=== PATIENT | female | born 1970 | race Caucasian/White ===

== ENCOUNTER → 2017-05-05 | Outpatient (REF) | payer MEDICARE, OTHER ==
[~2017-05-05] MED LIST: HYDROCHLOROTHIAZIDE PO; METROPROLOL PO; PANTOPRAZOLE PO; VITAMIN D PO
[2017-05-05 16:24] LABS: BASO % 0.5 % (0.0-1.0); EOS # 0.1 K/mm3 (0.0-0.50); LARGE UNSTAINED CELL # 0.1 K/mm3 (0.0-0.4); LARGE UNSTAINED CELL % 1.1 % (0.0-4.0); LYMPH # 2.5 K/mm3 (1.5-4.5); LYMPH % 23.4 % (24.0-44.0); MEAN CORPUSCULAR HEMOGLOBIN 31.4 pg (27.0-33.0); MEAN CORPUSCULAR HGB CONC 33.8 g/dl (32.0-36.5); MONO # 0.3 K/mm3 (0.0-0.8); MONO % 3.3 % (0.0-5.0); NEUTROPHILS # 7.2 K/mm3 (1.8-7.7); NEUTROPHILS % 70.7 % (36.0-66.0); PLATELET COUNT, AUTOMATED 219 k/mm3 (150-450); RED CELL DISTRIBUTION WIDTH 13.6 % (11.5-14.5); WHITE BLOOD COUNT 10.2 K/mm3 (4.0-10.0)
[2017-05-05 16:37] LABS: ALBUMIN 3.6 GM/DL (3.2-5.2); ALBUMIN/GLOBULIN RATIO 1.09 (1.00-1.93); ALKALINE PHOSPHATASE 100 U/L (45-117); ALT/SGPT 31 U/L (12-78); ANION GAP 7 MEQ/L (8-16); AST/SGOT 24 U/L (15-37); BILIRUBIN,TOTAL 0.3 MG/DL (0.2-1.0); BLOOD UREA NITROGEN 6 MG/DL (7-18); CALCIUM LEVEL 9.1 MG/DL (8.5-10.1); CARBON DIOXIDE LEVEL 30 MEQ/L (21-32); CHLORIDE LEVEL 100 MEQ/L (98-107); CHOLESTEROL LEVEL 202 MG/DL (<200); GLOMERULAR FILTRATION RATE > 60.0 (>58); GLUCOSE, FASTING 98 MG/DL (70-105); POTASSIUM SERUM 3.6 MEQ/L (3.5-5.1); SODIUM LEVEL 137 MEQ/L (136-145); TOTAL PROTEIN 6.9 GM/DL (6.4-8.2); TRIGLYCERIDES LEVEL 90 MG/DL (<150)
== END ==
LOC: M LABDRAW1 16:06
PROVIDERS: ATTEND Nurse Practitioner Family
DX: K21.9 Gastro-esophageal reflux disease without esophagitis (principal); Z13.220 Encounter for screening for lipoid disorders; I10 Essential (primary) hypertension

== ENCOUNTER → 2018-02-07 | Outpatient (REF) | payer MEDICARE, OTHER ==
[2018-02-07 16:00] LABS: BASO # 0.1 10^3/uL (0.0-0.2); BASO % 0.6 % (0.0-1.0); EOS # 0.1 10^3/uL (0.0-0.50); EOS % 1.5 % (0.0-3.0); HEMATOCRIT 38.5 % (36.0-47.0); HEMOGLOBIN 12.9 g/dl (12.0-15.5); IMMATURE GRANULOCYTE % 0.2 % (0-3.0); LYMPH # 2.4 10^3/uL (1.5-4.5); LYMPH % 27.1 % (24.0-44.0); MEAN CORPUSCULAR HEMOGLOBIN 30.5 pg (27.0-33.0); MEAN CORPUSCULAR HGB CONC 33.5 g/dl (32.0-36.5); MONO # 0.5 10^3/uL (0.0-0.8); MONO % 5.5 % (0.0-5.0); NEUTROPHILS # 5.7 10^3/uL (1.8-7.7); NEUTROPHILS % 65.1 % (36.0-66.0); PLATELET COUNT, AUTOMATED 215 10^3/uL (150-450); RED BLOOD COUNT 4.23 10^6/uL (4.00-5.40); RED CELL DISTRIBUTION WIDTH 13.9 % (11.5-14.5); WHITE BLOOD COUNT 8.7 10^3/uL (4.0-10.0)
[2018-02-07 16:15] LABS: ALBUMIN 3.8 GM/DL (3.2-5.2); ALBUMIN/GLOBULIN RATIO 1.19 (1.00-1.93); ALKALINE PHOSPHATASE 109 U/L (45-117); ALT/SGPT 27 U/L (12-78); ANION GAP 8 MEQ/L (8-16); AST/SGOT 26 U/L (7-37); BILIRUBIN,TOTAL 0.3 MG/DL (0.2-1.0); BLOOD UREA NITROGEN 8 MG/DL (7-18); CARBON DIOXIDE LEVEL 30 MEQ/L (21-32); CHLORIDE LEVEL 106 MEQ/L (98-107); CHOLESTEROL LEVEL 184 MG/DL (<200); CHOLESTEROL RISK RATIO 3.066 (<5); CREATININE FOR GFR 0.84 MG/DL (0.55-1.30); GLOMERULAR FILTRATION RATE > 60.0 (>58); GLUCOSE, FASTING 90 MG/DL (70-100); HDL CHOLESTEROL 60 MG/DL (>40); LDL CHOLESTEROL 106.8 MG/DL (<100); NON-HDL-C 124 MG/DL; POTASSIUM SERUM 3.7 MEQ/L (3.5-5.1); SODIUM LEVEL 144 MEQ/L (136-145); TRIGLYCERIDES LEVEL 86 MG/DL (<150)
[2018-02-07 16:18] LABS: TOTAL 25(OH) VITAMIN D 21.5 NG/ML (30.0-100.0)
== END ==
LOC: M LABDRAW1 12:32
DX: I10 Essential (primary) hypertension (principal); Z13.220 Encounter for screening for lipoid disorders; E55.9 Vitamin D deficiency, unspecified
CPT/HCPCS: 80053

== ENCOUNTER → 2018-11-23 | Outpatient (REF) ==
--- NOTE | 2018-11-23 16:58 | REP ---
PARTIAL LUMBAR SPINE, THREE VIEWS: HISTORY: Degenerative disc disease. There is no acute fracture or subluxation. The L4-5 and L5-S1 intervertebral discs are decreased in height consistent with disc degeneration. Osteophytes are present on L2 and L3. IMPRESSION: Degenerative change as described above. Electronically Signed by Yinka Stanley MD 11/23/2018 04:59 P
--- NOTE | 2018-11-23 16:59 | REP ---
RIGHT HAND, FOUR VIEWS: HISTORY: Degenerative joint disease. The patient is status post ORIF of a fracture of the distal ulna. A fixation plate and screws are present. There is no acute fracture or dislocation. The joint spaces are normal in appearance. IMPRESSION: There is no acute fracture or dislocation. Electronically Signed by Yinka Stanley MD 11/23/2018 05:00 P
== END ==
LOC: M SMT 13:47
PROVIDERS: ATTEND Internal Medicine
DX: M51.9 Unspecified thoracic, thoracolumbar and lumbosacral intervertebral disc disorder (principal)

== ENCOUNTER → 2018-11-29 | Outpatient (REF) ==
--- NOTE | 2018-11-29 11:19 | REP ---
RIGHT SHOULDER, THREE VIEWS: HISTORY: Degenerative joint disease. There is no acute fracture or dislocation. The joint spaces are normal in appearance. IMPRESSION: There is no acute fracture or dislocation. Electronically Signed by Yinka Stanley MD 11/29/2018 11:27 A
== END ==
LOC: M SMT 10:42
PROVIDERS: ATTEND Internal Medicine
DX: Z02.89 Encounter for other administrative examinations (principal)

== ENCOUNTER → 2019-02-13 | Outpatient (CLI) | payer MEDICARE, OTHER ==
[2019-02-13 19:12] LABS: BASO % 0.5 % (0.0-1.0); EOS # 0.1 10^3/uL (0.0-0.50); EOS % 0.8 % (0.0-3.0); HEMOGLOBIN 13.7 g/dl (12.0-15.5); LYMPH # 2.5 10^3/uL (1.5-4.5); LYMPH % 29.7 % (24.0-44.0); MEAN CORPUSCULAR HEMOGLOBIN 30.8 pg (27.0-33.0); MEAN CORPUSCULAR HGB CONC 32.6 g/dl (32.0-36.5); MEAN CORPUSCULAR VOLUME 94.4 fl (80.0-96.0); MONO # 0.5 10^3/uL (0.0-0.8); MONO % 5.6 % (0.0-5.0); NEUTROPHILS # 5.2 10^3/uL (1.8-7.7); NEUTROPHILS % 63.2 % (36.0-66.0); PLATELET COUNT, AUTOMATED 218 10^3/uL (150-450); RED BLOOD COUNT 4.45 10^6/uL (4.00-5.40); WHITE BLOOD COUNT 8.3 10^3/uL (4.0-10.0)
[2019-02-13 19:23] LABS: ALBUMIN 3.9 GM/DL (3.2-5.2); ALT/SGPT 28 U/L (12-78); BILIRUBIN,TOTAL 0.3 MG/DL (0.2-1.0); BLOOD UREA NITROGEN 12 MG/DL (7-18); CALCIUM LEVEL 8.8 MG/DL (8.5-10.1); CARBON DIOXIDE LEVEL 30 MEQ/L (21-32); CHLORIDE LEVEL 106 MEQ/L (98-107); CHOLESTEROL LEVEL 216 MG/DL (<200); CHOLESTEROL RISK RATIO 3.857 (<5); GLOMERULAR FILTRATION RATE > 60.0 (>58); GLUCOSE, FASTING 103 MG/DL (70-100); HDL CHOLESTEROL 56 MG/DL (>40); LDL CHOLESTEROL 139 MG/DL (<100); NON-HDL-C 160 MG/DL; POTASSIUM SERUM 3.6 MEQ/L (3.5-5.1); SODIUM LEVEL 141 MEQ/L (136-145); TOTAL 25(OH) VITAMIN D 18.8 NG/ML (30.0-100.0); TOTAL PROTEIN 7.1 GM/DL (6.4-8.2); TRIGLYCERIDES LEVEL 107 MG/DL (<150)
== END ==
LOC: M SMT 11:54
PROVIDERS: ATTEND Nurse Practitioner Family
DX: I10 Essential (primary) hypertension (principal); E55.9 Vitamin D deficiency, unspecified; E78.5 Hyperlipidemia, unspecified

== ENCOUNTER → 2019-07-11 | Outpatient (CLI) | payer MEDICARE, OTHER ==
[2019-07-11 15:21] LABS: HEMOGLOBIN A1c 5.9 %
[2019-07-11 15:36] LABS: ALBUMIN 3.8 GM/DL (3.2-5.2); ALT/SGPT 28 U/L (12-78); BILIRUBIN,TOTAL 0.3 MG/DL (0.2-1.0); BLOOD UREA NITROGEN 8 MG/DL (7-18); CALCIUM LEVEL 9.3 MG/DL (8.5-10.1); CARBON DIOXIDE LEVEL 31 MEQ/L (21-32); CHLORIDE LEVEL 103 MEQ/L (98-107); CHOLESTEROL LEVEL 194 MG/DL (<200); CHOLESTEROL RISK RATIO 3.079 (<5); CREATININE FOR GFR 0.87 MG/DL (0.55-1.30); GLOMERULAR FILTRATION RATE > 60.0 (>58); GLUCOSE, FASTING 95 MG/DL (70-100); HDL CHOLESTEROL 63 MG/DL (>40); LDL CHOLESTEROL 110 MG/DL (<100); NON-HDL-C 131 MG/DL; POTASSIUM SERUM 3.6 MEQ/L (3.5-5.1); SODIUM LEVEL 142 MEQ/L (136-145); TOTAL PROTEIN 7.1 GM/DL (6.4-8.2); TRIGLYCERIDES LEVEL 105 MG/DL (<150)
[2019-07-11 15:37] LABS: MALB URINE SIEMENS 17.5 MG/L; MAU/CREAT RATIO 6.3 MCG/MG (0.0-30.0)
== END ==
LOC: M LAB 13:58
PROVIDERS: ATTEND Student in an Organized Health Care Education/Training Program
DX: E78.49 Other hyperlipidemia (principal); Z83.3 Family history of diabetes mellitus; I10 Essential (primary) hypertension

== ENCOUNTER → 2019-08-10 | Outpatient (CLI) | payer MEDICARE, OTHER ==
--- NOTE | 2019-08-10 11:11 | REP ---
BILATERAL MAMMOGRAM WITH 3D TOMOSYNTHESIS: Family history of breast cancer over age 50 in maternal aunt and under age 50 in niece. COMPARISON: 03/24/2016 as well as other prior exams. Bilateral mammogram performed in the MLO and CC projections with 3D tomosynthesis. Mild scattered fibroglandular tissue is again seen. Lymph node is seen in the right axillary tail appearing similar to the prior study. There is a well-circumscribed nodule in the upper inner right breast 5 mm in diameter. No clustered microcalcifications are seen. IMPRESSION: BIRADS 0: BI-RADS/ACR category 0 mammogram, Incomplete: Need additional imaging evaluation and/or prior mammograms for comparison. Well-circumscribed 5 mm nodule upper inner right breast. Recommend spot compression views and ultrasound to further evaluate. This mammogram was interpreted with the aid of an FDA-approved computer-aided detection system. A. Negative x-ray reports should not delay biopsy if a dominant or clinically suspicious mass is present. B. Four to eight percent of cancers are not identified by x-ray. C. Adenosis and dense breasts may obscure an underlying neoplasm. The patient states that she or he has not had a clinical breast exam in over a year. The patient letter being requested is M0.
== END ==
LOC: M WHC 09:37
PROVIDERS: ATTEND Student in an Organized Health Care Education/Training Program
DX: Z12.31 Encounter for screening mammogram for malignant neoplasm of breast (principal); R92.8 Other abnormal and inconclusive findings on diagnostic imaging of breast

== ENCOUNTER → 2019-08-24 | Outpatient (CLI) | payer MEDICARE, OTHER ==
--- NOTE | 2019-08-24 11:59 | REP ---
Digital diagnostic unilateral right breast mammography with CAD and focused right breast sonography: History: Screening exam from August 10, 2019 was BIRADS category 0 because of a 5 mm well-circumscribed nodule in the superomedial quadrant of the right breast. Diagnostic imaging was recommended. Mammographic findings: Magnified focal spot compression CC, true mediolateral, and MLO views are obtained. These confirm the presence of a well-circumscribed oval-shaped nodular opacity in the superior medial quadrant of the right breast. Breast parenchyma is predominately fat replaced. No other mammographic finding. Sonographic findings: The right breast is scanned from 2 o'clock to 6 o'clock. At 2 o'clock there is a 5 x 5 x 3 mm cyst located 2 cm from the nipple. This is felt to account for the mammographic opacity. No suspicious sonographic finding. Impression: BIRADS 2: BI-RADS/ACR category 2 mammogram. Benign Findings. BIRADS category 2 benign right breast imaging. Cyst seen in the right breast. Repeat screening mammography recommended 1 year. This mammogram was interpreted with the aid of an FDA-approved computer-aided detection system. The patient states that she/he has not had a clinical breast exam in over a year. The patient letter being requested is m1. This patient's estimated Tyrer-Cuzick lifetime risk assessment for the breast cancer is 13.9 %. Electronically Signed by John Saleh MD 08/24/2019 12:28 P
== END ==
LOC: M RAD 09:11
PROVIDERS: ATTEND Student in an Organized Health Care Education/Training Program
DX: Z12.31 Encounter for screening mammogram for malignant neoplasm of breast (principal); N60.01 Solitary cyst of right breast

== ENCOUNTER 2020-02-13 13:12 | Emergency (ER) | payer MEDICARE, OTHER ==
[~2020-02-13] VITALS: Ht 167.6 cm; Wt 100.6 kg
[2020-02-13] MEDS ORDERED: METO1TAB32 (13:21)
[2020-02-13] MEDS ORDERED: VITA50005 (13:21)
[2020-02-13] MEDS ORDERED: HYDR25TAB (13:21)
[2020-02-13] MEDS ORDERED: SERT-138 (13:21)
[2020-02-13] MEDS ORDERED: OMEP-218 (13:21)
[2020-02-13] MEDS ORDERED: BOOSTRIX/ADACEL VACCINE (DIPHTH/PERTUSS/ACELL/TETANUS) 0.5ML SYR IM ONE (14:15)
[2020-02-13] MEDS ORDERED: TOBR0.3S37 OS (14:33)
[2020-02-13] MEDS ORDERED: [UNRECOGNIZED DRUG - CODE] OS (14:33)
[2020-02-13 14:41] VITALS: BP 145/72
== END 2020-02-13 14:43 | disposition home or self-care (01) ==
LOC: M ED 13:12
DX: H11.32 Conjunctival hemorrhage, left eye (principal); T15.92XA Foreign body on external eye, part unspecified, left eye, initial encounter; W29.3XXA Contact with powered garden and outdoor hand tools and machinery, initial encounter; Y92.096 Garden or yard of other non-institutional residence as the place of occurrence of the external cause; Y93.H9 Activity, other involving exterior property and land maintenance, building and construction; I10 Essential (primary) hypertension; F17.200 Nicotine dependence, unspecified, uncomplicated; Z88.2 Allergy status to sulfonamides; Z79.899 Other long term (current) drug therapy; Z23 Encounter for immunization

== ENCOUNTER → 2020-02-28 | Outpatient (CLI) | payer MEDICARE, OTHER ==
[~2020-02-28] MED LIST changes: +HYDR25TAB; +METO1TAB32; +OMEP-218; +SERT-138; +TOBR0.3S37 OS; +VITA50005; +[UNRECOGNIZED DRUG - CODE] OS
[2020-02-28 11:31] LABS: BLOOD UREA NITROGEN 10 MG/DL (7-18); CALCIUM LEVEL 8.9 MG/DL (8.5-10.1); CARBON DIOXIDE LEVEL 31 MEQ/L (21-32); CHLORIDE LEVEL 104 MEQ/L (98-107); GLOMERULAR FILTRATION RATE > 60.0 (>58); GLUCOSE, FASTING 99 MG/DL (70-100); POTASSIUM SERUM 3.5 MEQ/L (3.5-5.1); SODIUM LEVEL 141 MEQ/L (136-145)
[2020-02-28 11:38] LABS: TOTAL 25(OH) VITAMIN D 54.9 NG/ML (30.0-100.0)
== END ==
LOC: M LAB 10:09
PROVIDERS: ATTEND Family Medicine
DX: E55.9 Vitamin D deficiency, unspecified (principal); I10 Essential (primary) hypertension
CPT/HCPCS: 36415; 80048; 82306; G0463

== ENCOUNTER → 2020-04-24 | Outpatient (CLI) | payer MEDICARE, OTHER ==
[~2020-04-24] MED LIST changes: +HYDR25TAB PO; +IBUP200C28 PO; +METO1TAB32 PO; +OMEP1CAP73 PO; +SERT-138 PO; +VITA50005 PO
[2020-04-24 16:52] LABS: FREE T4 0.88 NG/DL (0.76-1.46); THYROID STIMULATING HORMONE 1.85 uIU/ML (0.358-3.740)
== END ==
LOC: M LAB 15:52
PROVIDERS: ATTEND Internal Medicine Gastroenterology
DX: R19.7 Diarrhea, unspecified (principal)

== ENCOUNTER → 2020-04-25 | Outpatient (REF) | payer MEDICARE, OTHER ==
[2020-04-25 10:34] LABS: CLOSTRIDIUM DIFFICILE PCR NEGATIVE (NEGATIVE)
[2020-05-27 14:43] LABS: CALPROTECTIN STOOL 50 ug/g (0-120); FATS NEUTRAL Normal (.); FATS TOTAL Normal (.); PANCREATIC ELASTASE STOOL 399 (>200)
== END ==
LOC: M LAB REF 09:16
PROVIDERS: ATTEND Internal Medicine Gastroenterology
DX: R19.7 Diarrhea, unspecified (principal)

== ENCOUNTER → 2020-07-18 | Outpatient (CLI) | payer MEDICARE, OTHER | LOC: M LABSMTC 11:31 | PROVIDERS: ATTEND Anesthesiology | DX: Z01.812 Encounter for preprocedural laboratory examination (principal); Z20.828 Contact with and (suspected) exposure to other viral communicable diseases | CPT/HCPCS: C9803; U0003 ==

== ENCOUNTER 2020-07-23 11:54 | Day surgery (SDC) | payer MEDICARE, OTHER ==
[~2020-07-23] VITALS: Ht 167.6 cm; Wt 96.2 kg
[~2020-07-23 11:54] MED LIST changes: +LIDOCAINE 2% 100MG/5ML SDV (FOR ANES.) As Ordered ONE; +NS 1,000 ML IV ONE; +fentaNYL 100 MCG/2 ML INJECTION (J3010) As Ordered ONE; +propofoL 200 MG/20 ML VIAL As Ordered ONE
--- NOTE | 2020-07-23 14:29 | ROOR ---
Patient Name: Nurys Rueda Procedure Date: 07/23/2020 2:09 PM Date of : 1970 Age: 50 Room: [facility] Gender: Female Note Status: Finalized Procedure: Upper GI endoscopy Indications: Heartburn Providers: Jeffrey LLANOS MD Referring MD: Yosef Olivo Do Requesting Provider: Medicines: Monitored Anesthesia Care Complications: No immediate complications. Procedure: Pre-Anesthesia Assessment: - The heart rate, respiratory rate, oxygen saturations, blood pressure, adequacy of pulmonary ventilation, and response to care were monitored throughout the procedure. The Endoscope was introduced through the mouth, and advanced to the second part of duodenum. The upper GI endoscopy was accomplished without difficulty. The patient tolerated the procedure well. Findings: The esophagus was normal. The stomach was normal. The examined duodenum was normal. Impression: - Normal esophagus. - Normal stomach. - Normal examined duodenum. - No specimens collected. Recommendation: - Observe patient's clinical course. - Continue present medications. Jeffrey Llanos MD Jeffrey LLANOS MD 07/23/2020 2:28:53 PM Electronically signed by Jeffrey LLANOS MD Number of Addenda: 0 Note Initiated On: 07/23/2020 2:09 PM Estimated Blood Loss: Estimated blood loss: none.
--- NOTE | 2020-07-23 14:46 | ROOR ---
Patient Name: Nurys Rueda Procedure Date: 07/23/2020 2:13 PM Date of : 1970 Age: 50 Room: [facility] Gender: Female Note Status: Finalized Procedure: Colonoscopy Indications: Clinically significant diarrhea of unexplained origin Providers: Jeffrey LLANOS MD Referring MD: Yosef Olivo Do Requesting Provider: Medicines: Monitored Anesthesia Care Complications: No immediate complications. Procedure: Pre-Anesthesia Assessment: - The heart rate, respiratory rate, oxygen saturations, blood pressure, adequacy of pulmonary ventilation, and response to care were monitored throughout the procedure. The Colonoscope was introduced through the anus and advanced to 10 cm into the ileum. The colonoscopy was performed without difficulty. The patient tolerated the procedure well. The quality of the bowel preparation was good. Findings: The perianal and digital rectal examinations were normal. The colon (entire examined portion) appeared normal. The terminal ileum appeared normal. Small Internal Hemorrhoids. Biopsies for histology were taken with a cold forceps for evaluation of microscopic colitis. Impression: - The entire examined colon is normal. - The examined portion of the ileum was normal. - Small Internal Hemorrhoids. - Biopsies were taken with a cold forceps for evaluation of microscopic colitis. Recommendation: - Telephone endoscopist for pathology results in 2 weeks. - Continue present medications. - Lactose free diet. Reduce alcohol intake. Jeffrey Llanos MD Jeffrey LLANOS MD 07/23/2020 2:45:37 PM Electronically signed by Jeffrey LLANOS MD Number of Addenda: 0 Note Initiated On: 07/23/2020 2:13 PM Estimated Blood Loss: Estimated blood loss: none.
[2020-07-23 15:05] VITALS: BP 130/78
== END 2020-07-23 15:20 | disposition home or self-care (01) ==
LOC: M OPP 11:54
PROVIDERS: ATTEND Internal Medicine Gastroenterology
DX: R19.7 Diarrhea, unspecified (principal); R12 Heartburn; R10.9 Unspecified abdominal pain; D12.6 Benign neoplasm of colon, unspecified; K64.8 Other hemorrhoids; I10 Essential (primary) hypertension; F41.9 Anxiety disorder, unspecified; F32.9 Major depressive disorder, single episode, unspecified; K21.9 Gastro-esophageal reflux disease without esophagitis; F17.210 Nicotine dependence, cigarettes, uncomplicated; Z88.2 Allergy status to sulfonamides; Z79.899 Other long term (current) drug therapy; Z80.1 Family history of malignant neoplasm of trachea, bronchus and lung; Z80.8 Family history of malignant neoplasm of other organs or systems; Z83.79 Family history of other diseases of the digestive system
CPT/HCPCS: 43235; 45380; 88305; J3010

== ENCOUNTER 2021-01-18 11:19 | Emergency (ER) | payer MEDICARE, OTHER ==
[~2021-01-18] VITALS: Ht 167.6 cm; Wt 100.0 kg
[~2021-01-18 11:19] MED LIST changes: +HYDR-3490; +HYDR-3490 PO; -HYDR25TAB; -HYDR25TAB PO; -LIDOCAINE 2% 100MG/5ML SDV (FOR ANES.) As Ordered ONE; -NS 1,000 ML IV ONE; -fentaNYL 100 MCG/2 ML INJECTION (J3010) As Ordered ONE; -propofoL 200 MG/20 ML VIAL As Ordered ONE
[2021-01-18 12:09] LABS: BASO # 0.1 10^3/uL (0.0-0.2); BASO % 0.5 % (0.0-1.0); EOS # 0.1 10^3/uL (0.0-0.5); EOS % 1.1 % (0.0-3.0); HEMOGLOBIN 13.7 g/dl (12.0-15.5); LYMPH # 2.3 10^3/uL (1.5-5.0); LYMPH % 22.6 % (24.0-44.0); MEAN CORPUSCULAR HEMOGLOBIN 31.4 pg (27.0-33.0); MEAN CORPUSCULAR HGB CONC 34.3 g/dl (32.0-36.5); MEAN CORPUSCULAR VOLUME 91.7 fl (80.0-96.0); MONO # 0.5 10^3/uL (0.0-0.8); NEUTROPHILS % 70.4 % (36.0-66.0); PLATELET COUNT, AUTOMATED 230 10^3/uL (150-450); RED BLOOD COUNT 4.36 10^6/uL (4.00-5.40); WHITE BLOOD COUNT 9.9 10^3/uL (4.0-10.0)
[2021-01-18] MEDS ORDERED: ISOVUE-370 76% 100ML VIAL As Ordered ONE (12:30)
[2021-01-18 12:38] LABS: ALBUMIN 3.5 GM/DL (3.2-5.2); ALT/SGPT 27 U/L (12-78); BILIRUBIN,DIRECT < 0.1 MG/DL (0.0-0.2); BILIRUBIN,TOTAL 0.3 MG/DL (0.2-1.0); LIPASE 92 U/L (73-393); TOTAL PROTEIN 6.9 GM/DL (6.4-8.2)
[2021-01-18 12:55] LABS: HCG, SERUM QUALITATIVE NEGATIVE (NEGATIVE)
--- NOTE | 2021-01-18 13:51 | REP ---
INDICATION: rlq pain COMPARISON: CT chest 06/19/2011.. TECHNIQUE: CT Scan of the abdomen and pelvis was performed with intravenous administration of 100 cc of Isovue 370, without oral contrast. Sagittal and coronal reconstruction images are performed. FINDINGS: Lung bases: Unremarkable. Liver: There is mild hepatomegaly, the length of the liver is 19.3 cm. There is diffuse fatty infiltration of the liver. Gallbladder: Prior cholecystectomy. Spleen: Normal. Adrenals: There is a 1.6 cm left adrenal adenoma as seen on the prior exam. Pancreas: Normal. Kidneys: Normal. Small and large bowel: There is sigmoid diverticulosis. There is segmental thickening of the sigmoid with inflammatory stranding of the pericolonic fat consistent with diverticulitis. There is no free air or abscess. Free fluid: None. Abdominal aorta: No aneurysm or dissection. Adenopathy: None. Appendix: Not inflamed. Osseous structures: Unremarkable. Pelvis: No mass. Follicles are seen in each ovary. IMPRESSION: Sigmoid diverticulitis. No free air, free fluid or abscess. <Electronically signed by Momo Mayorga > 01/18/21 [id number]
[2021-01-18] MEDS ORDERED: AUGM875T28 PO (13:59)
[2021-01-18 14:13] VITALS: BP 148/77
== END 2021-01-18 14:16 | disposition home or self-care (01) ==
LOC: M ED 11:19
DX: K57.92 Diverticulitis of intestine, part unspecified, without perforation or abscess without bleeding (principal); I10 Essential (primary) hypertension; K21.9 Gastro-esophageal reflux disease without esophagitis; F17.210 Nicotine dependence, cigarettes, uncomplicated
CPT/HCPCS: 36415; 74177; 80047; 80076; 83690; 84702; 84703; 85025; 99284; Q9967

== ENCOUNTER 2021-05-01 10:42 | Emergency (ER) | payer MEDICARE, OTHER ==
[~2021-05-01] VITALS: Ht 167.6 cm; Wt 94.4 kg
[~2021-05-01 10:42] MED LIST changes: +AUGM875T28 PO; +ERGO500029; +ERGO500029 PO; -VITA50005; -VITA50005 PO
[2021-05-01 11:43] LABS: BASO % 0.4 % (0.0-1.0); EOS # 0.3 10^3/uL (0.0-0.5); EOS % 3.2 % (0.0-3.0); HEMATOCRIT 42.6 % (36.0-47.0); HEMOGLOBIN 14.5 g/dl (12.0-15.5); LYMPH # 2.4 10^3/uL (1.5-5.0); LYMPH % 24.9 % (24.0-44.0); MEAN CORPUSCULAR HEMOGLOBIN 30.7 pg (27.0-33.0); MEAN CORPUSCULAR VOLUME 90.3 fl (80.0-96.0); MONO # 0.5 10^3/uL (0.0-0.8); MONO % 5.6 % (2.0-8.0); NEUTROPHILS # 6.2 10^3/uL (1.5-8.5); NEUTROPHILS % 65.6 % (36.0-66.0); PLATELET COUNT, AUTOMATED 222 10^3/uL (150-450); RED BLOOD COUNT 4.72 10^6/uL (4.00-5.40); WHITE BLOOD COUNT 9.5 10^3/uL (4.0-10.0)
[2021-05-01 12:16] LABS: ALBUMIN 3.5 GM/DL (3.2-5.2); ALT/SGPT 35 U/L (12-78); BILIRUBIN,DIRECT 0.1 MG/DL (0.0-0.2); BILIRUBIN,TOTAL 0.4 MG/DL (0.2-1.0); BLOOD UREA NITROGEN 9 MG/DL (7-18); CALCIUM LEVEL 9.1 MG/DL (8.5-10.1); CARBON DIOXIDE LEVEL 34 MEQ/L (21-32); CHLORIDE LEVEL 103 MEQ/L (98-107); GLOMERULAR FILTRATION RATE > 60.0 (>51); GLUCOSE, FASTING 98 MG/DL (70-100); LIPASE 149 U/L (73-393); POTASSIUM SERUM 3.1 MEQ/L (3.5-5.1); SODIUM LEVEL 141 MEQ/L (136-145); TOTAL PROTEIN 6.6 GM/DL (6.4-8.2)
[2021-05-01] MEDS ORDERED: ISOVUE-370 76% 100ML VIAL As Ordered ONE (13:29)
[2021-05-01 13:31] VITALS: BP 139/83
--- NOTE | 2021-05-01 17:38 | ECGEPIP ---
[facility] - ED Test Date: 2021-05-01 Pat Name: LYNSEY KIDD Department: Room: - Gender: Female [employer]: SHAUN : 1970 Requested By: Dilma Fish Order Number: [id number] Reading MD: Jeffrey Landon Measurements Intervals [place] Rate: 70 P: 62 MS: 150 QRS: 34 QRSD: 82 T: 29 QT: 394 QTc: 425 Interpretive Statements Normal sinus rhythm with sinus arrhythmia Cannot rule out Anterior infarct , age undetermined Comparison tracing not on file Electronically Signed on 05-01-2021 17:38:01 EDT by Jeffrey Landon
== END 2021-05-01 13:44 | disposition left against medical advice (07) ==
LOC: M ED 10:42
DX: R07.9 Chest pain, unspecified (principal); E87.6 Hypokalemia; I10 Essential (primary) hypertension; F33.9 Major depressive disorder, recurrent, unspecified; F41.9 Anxiety disorder, unspecified; K21.9 Gastro-esophageal reflux disease without esophagitis; Z79.899 Other long term (current) drug therapy; Z88.1 Allergy status to other antibiotic agents; Z88.2 Allergy status to sulfonamides; F17.210 Nicotine dependence, cigarettes, uncomplicated

== ENCOUNTER → 2021-10-23 | Outpatient (REF) | payer MEDICARE, OTHER | LOC: M SFHCPLAZ 13:36 | PROVIDERS: ATTEND Family Medicine | DX: E53.8 Deficiency of other specified B group vitamins (principal); I10 Essential (primary) hypertension; K21.9 Gastro-esophageal reflux disease without esophagitis; E55.9 Vitamin D deficiency, unspecified; Z13.1 Encounter for screening for diabetes mellitus; Z13.220 Encounter for screening for lipoid disorders; N95.1 Menopausal and female climacteric states ==

== ENCOUNTER → 2021-10-23 | Outpatient (CLI) | payer MEDICARE, OTHER ==
[~2021-10-23] MED LIST changes: +OMEP-173; -OMEP-218
[2021-10-23 17:51] LABS: BASO # 0.1 10^3/uL (0.0-0.2); BASO % 0.7 % (0.0-1.0); EOS # 0.2 10^3/uL (0.0-0.5); HEMATOCRIT 45.1 % (36.0-47.0); HEMOGLOBIN 14.6 g/dl (12.0-15.5); LYMPH % 29.1 % (24.0-44.0); MEAN CORPUSCULAR HEMOGLOBIN 30.4 pg (27.0-33.0); MEAN CORPUSCULAR HGB CONC 32.4 g/dl (32.0-36.5); MONO # 0.8 10^3/uL (0.0-0.8); MONO % 7.6 % (2.0-8.0); NEUTROPHILS # 6.2 10^3/uL (1.5-8.5); NEUTROPHILS % 60.4 % (36.0-66.0); PLATELET COUNT, AUTOMATED 245 10^3/uL (150-450); WHITE BLOOD COUNT 10.2 10^3/uL (4.0-10.0)
[2021-10-23 18:20] LABS: HEMOGLOBIN A1c 5.9 %
[2021-10-23 18:26] LABS: BLOOD UREA NITROGEN 10 MG/DL (7-18); CALCIUM LEVEL 9.7 MG/DL (8.5-10.1); CARBON DIOXIDE LEVEL 29 MEQ/L (21-32); CHLORIDE LEVEL 106 MEQ/L (98-107); CHOLESTEROL LEVEL 232 MG/DL (<200); CHOLESTEROL RISK RATIO 3.462 (<5); CREATININE FOR GFR 0.79 MG/DL (0.55-1.30); GLOMERULAR FILTRATION RATE > 60.0 (>51); GLUCOSE, FASTING 79 MG/DL (70-100); HDL CHOLESTEROL 67 MG/DL (>40); LDL CHOLESTEROL 139 MG/DL (<100); NON-HDL-C 165 MG/DL; POTASSIUM SERUM 4.9 MEQ/L (3.5-5.1); SODIUM LEVEL 142 MEQ/L (136-145); TRIGLYCERIDES LEVEL 129 MG/DL (<150)
[2021-10-23 18:32] LABS: FOLLICLE STIMULATING HORMONE 88.4 mIU/mL; TOTAL 25(OH) VITAMIN D 18.5 NG/ML (30.0-100.0)
[2021-10-24 09:42] LABS: VITAMIN B12 LEVEL 513 PG/ML (247-911)
== END ==
LOC: M PLALAB 13:51
PROVIDERS: ATTEND Student in an Organized Health Care Education/Training Program
DX: E53.8 Deficiency of other specified B group vitamins (principal); I10 Essential (primary) hypertension; K21.9 Gastro-esophageal reflux disease without esophagitis; E55.9 Vitamin D deficiency, unspecified; N95.1 Menopausal and female climacteric states; Z13.1 Encounter for screening for diabetes mellitus; Z13.220 Encounter for screening for lipoid disorders; Z79.899 Other long term (current) drug therapy

== ENCOUNTER → 2022-09-16 | Outpatient (CLI) | payer OTHER, MEDICARE ==
[2022-09-16 13:07] LABS: ALBUMIN 3.9 G/DL (3.2-5.2); ALKALINE PHOSPHATASE 92 U/L (46-116); ALT/SGPT 26 U/L (7.0-40); AST/SGOT 23 U/L (<34); BILIRUBIN,TOTAL 0.4 MG/DL (0.3-1.2); BLOOD UREA NITROGEN 13 MG/DL (9-23); CALCIUM LEVEL 9.5 MG/DL (8.5-10.1); CARBON DIOXIDE LEVEL 29 MMOL/L (20-31); CHLORIDE LEVEL 105 MMOL/L (98-107); CHOLESTEROL LEVEL 184 MG/DL (<200); CREATININE FOR GFR 0.95 MG/DL (0.55-1.30); GLOMERULAR FILTRATION RATE > 60.0 (>51); GLUCOSE, FASTING 102 MG/DL (60-100); HDL CHOLESTEROL 65.5 MG/DL (>40); LDL CHOLESTEROL 106.3 MG/DL (<100); NON-HDL-C 119 MG/DL; SODIUM LEVEL 141 MMOL/L (136-145); TRIGLYCERIDES LEVEL 61 MG/DL (<150)
[2022-09-16 13:09] LABS: TOTAL 25(OH) VITAMIN D 50.7 NG/ML (20.0-100.0)
[2022-09-16 13:18] LABS: HEMOGLOBIN A1c 5.5 % (4.0-6.0)
== END ==
LOC: M LAB 12:10
PROVIDERS: ATTEND Family Medicine
DX: Z13.1 Encounter for screening for diabetes mellitus (principal); E55.9 Vitamin D deficiency, unspecified; E78.00 Pure hypercholesterolemia, unspecified; F10.10 Alcohol abuse, uncomplicated; Z79.899 Other long term (current) drug therapy

== ENCOUNTER → 2022-11-06 | Outpatient (CLI) | payer MEDICARE, OTHER ==
[~2022-11-06] MED LIST changes: +MOXI3DRO OS; -[UNRECOGNIZED DRUG - CODE] OS
== END ==
LOC: M PLAIMG 11:51
PROVIDERS: ATTEND Student in an Organized Health Care Education/Training Program
DX: R07.81 Pleurodynia (principal)

== ENCOUNTER 2023-03-07 11:18 | Emergency (ER) | payer MEDICARE, OTHER ==
[~2023-03-07] VITALS: Ht 167.6 cm; Wt 100.5 kg
[2023-03-07 12:19] VITALS: BP 179/90; TEMP 97.5; O2SAT 97
[2023-03-07] MEDS ORDERED: HYDR-3715 PO (13:20)
== END 2023-03-07 13:00 | disposition home or self-care (01) ==
LOC: M ED 11:18
DX: S20.219A Contusion of unspecified front wall of thorax, initial encounter (principal); W22.8XXA Striking against or struck by other objects, initial encounter; Y92.009 Unspecified place in unspecified non-institutional (private) residence as the place of occurrence of the external cause; Y93.01 Activity, walking, marching and hiking; Y99.8 Other external cause status; I10 Essential (primary) hypertension; K21.9 Gastro-esophageal reflux disease without esophagitis; K58.9 Irritable bowel syndrome, unspecified; E78.00 Pure hypercholesterolemia, unspecified; Z87.891 Personal history of nicotine dependence; Z88.2 Allergy status to sulfonamides; Z79.899 Other long term (current) drug therapy

== ENCOUNTER 2023-03-20 08:30 | Emergency (ER) | payer MEDICARE, OTHER ==
[~2023-03-20] VITALS: Ht 167.6 cm; Wt 101.9 kg
[~2023-03-20 08:30] MED LIST changes: +HYDR-3715 PO
[2023-03-20] MEDS ORDERED: TIZA10TA (08:43)
[2023-03-20] MEDS ORDERED: KETOROLAC 30 MG/ML 1ML VIAL IV ONE (09:45)
[2023-03-20 09:53] LABS: HEMATOCRIT 46.1 % (36.0-47.0); HEMOGLOBIN 15.1 g/dl (12.0-15.5); MEAN CORPUSCULAR HEMOGLOBIN 30.8 pg (27.0-33.0); MEAN CORPUSCULAR HGB CONC 32.8 g/dl (32.0-36.5); MEAN CORPUSCULAR VOLUME 93.9 fl (80.0-96.0); PLATELET COUNT, AUTOMATED 255 10^3/uL (150-450); RED BLOOD COUNT 4.91 10^6/uL (4.00-5.40); WHITE BLOOD COUNT 12.5 10^3/uL (4.0-10.0)
[2023-03-20] MEDS ORDERED: ISOVUE-370 76% 100ML VIAL As Ordered ONE (09:59)
[2023-03-20 10:07] LABS: INR 0.88; PROTHROMBIN TIME 12.1 SECONDS (12.5-14.5)
[2023-03-20 10:08] LABS: PARTIAL THROMBOPLASTIN TIME 30.4 SECONDS (24.8-34.2)
[2023-03-20] MEDS ORDERED: TRAM50TA2 PO (11:04)
[2023-03-20 11:10] VITALS: BP 187/89; TEMP 97.2; O2SAT 97
== END 2023-03-20 11:12 | disposition home or self-care (01) ==
LOC: M ED 08:30
DX: S22.20XA Unspecified fracture of sternum, initial encounter for closed fracture (principal); W22.8XXA Striking against or struck by other objects, initial encounter; Y92.89 Other specified places as the place of occurrence of the external cause; Y93.89 Activity, other specified; Y99.8 Other external cause status; R91.8 Other nonspecific abnormal finding of lung field; I10 Essential (primary) hypertension; K21.9 Gastro-esophageal reflux disease without esophagitis; F41.9 Anxiety disorder, unspecified; F32.A Depression, unspecified; F17.200 Nicotine dependence, unspecified, uncomplicated; Z88.2 Allergy status to sulfonamides; Z79.899 Other long term (current) drug therapy
CPT/HCPCS: 71275; 80047; 85027; 85610; 85730; 96374; 99284; J1885; Q9967

== ENCOUNTER → 2023-08-26 | Outpatient (CLI) | payer MEDICARE, OTHER ==
[~2023-08-26] MED LIST changes: +TIZA10TA; +TRAM50TA2 PO
[2023-08-26 15:01] LABS: HEMOGLOBIN A1c 5.8 % (4.0-6.0)
[2023-08-26 15:12] LABS: CHOLESTEROL RISK RATIO 3.65 (<5); HDL CHOLESTEROL 60.2 MG/DL (>40); NON-HDL-C 159.8 MG/DL
[2023-08-26 15:15] LABS: THYROID STIMULATING HORMONE 4.566 uIU/ML (0.55-4.78)
== END ==
LOC: M LAB 14:09
PROVIDERS: ATTEND Student in an Organized Health Care Education/Training Program
DX: E78.00 Pure hypercholesterolemia, unspecified (principal); Z13.29 Encounter for screening for other suspected endocrine disorder; Z13.1 Encounter for screening for diabetes mellitus; Z79.899 Other long term (current) drug therapy

== ENCOUNTER → 2023-10-13 | Outpatient (REF) | payer MEDICARE, OTHER | LOC: M SFHCWAGY 17:38 | PROVIDERS: ATTEND Nurse Practitioner Family | DX: Z12.4 Encounter for screening for malignant neoplasm of cervix (principal) | CPT/HCPCS: 87624; G0123 ==

== ENCOUNTER → 2023-10-13 | Outpatient (CLI) | payer MEDICARE, OTHER | LOC: M WHC 14:45 | PROVIDERS: ATTEND Nurse Practitioner Family | DX: Z12.31 Encounter for screening mammogram for malignant neoplasm of breast (principal) ==

== ENCOUNTER → 2024-03-22 | Outpatient (CLI) | payer MEDICARE, OTHER | LOC: M PLAIMG 11:43 | PROVIDERS: ATTEND Student in an Organized Health Care Education/Training Program | DX: M25.551 Pain in right hip (principal) ==

== ENCOUNTER → 2024-05-02 | Outpatient (CLI) | payer MEDICARE, OTHER | LOC: M RAD 15:35 | PROVIDERS: ATTEND Family Medicine | DX: M25.552 Pain in left hip (principal); M54.50 Low back pain, unspecified ==

== ENCOUNTER → 2024-10-18 | Outpatient (CLI) | payer MEDICARE, OTHER | LOC: M WHC 10:05 | PROVIDERS: ATTEND Nurse Practitioner Family | DX: Z12.31 Encounter for screening mammogram for malignant neoplasm of breast (principal); Z13.820 Encounter for screening for osteoporosis; F17.219 Nicotine dependence, cigarettes, with unspecified nicotine-induced disorders; R92.313 Mammographic fatty tissue density, bilateral breasts ==

== ENCOUNTER → 2024-10-18 | Outpatient (CLI) | payer MEDICARE, OTHER | LOC: M WHC 10:06 | PROVIDERS: ATTEND Nurse Practitioner Family | DX: Z13.820 Encounter for screening for osteoporosis (principal); Z12.31 Encounter for screening mammogram for malignant neoplasm of breast; F17.219 Nicotine dependence, cigarettes, with unspecified nicotine-induced disorders ==

== ENCOUNTER → 2024-11-06 | Outpatient (CLI) | payer MEDICARE, OTHER | LOC: M WHC 10:42 | PROVIDERS: ATTEND Nurse Practitioner Family | DX: R92.8 Other abnormal and inconclusive findings on diagnostic imaging of breast (principal); R92.313 Mammographic fatty tissue density, bilateral breasts; N63.10 Unspecified lump in the right breast, unspecified quadrant | CPT/HCPCS: 77065; G0279 ==

== ENCOUNTER → 2024-11-11 | Outpatient (CLI) | payer MEDICARE, OTHER | LOC: M RAD 10:42 | PROVIDERS: ATTEND Student in an Organized Health Care Education/Training Program | DX: M51.26 Other intervertebral disc displacement, lumbar region (principal) ==

== ENCOUNTER → 2024-11-14 | Outpatient (CLI) | payer MEDICARE, OTHER ==
[2024-11-14 15:44] LABS: ALKALINE PHOSPHATASE 77 U/L (35-104); ALT/SGPT 15 U/L (7.0-40); AST/SGOT 16 U/L (<34); BILIRUBIN,TOTAL 0.3 MG/DL (0.3-1.2); BLOOD UREA NITROGEN 10 MG/DL (9-23); CALCIUM LEVEL 9.8 MG/DL (8.5-10.1); CARBON DIOXIDE LEVEL 30 MMOL/L (20-31); CHLORIDE LEVEL 107 MMOL/L (98-107); CHOLESTEROL LEVEL 241 MG/DL (<200); CHOLESTEROL RISK RATIO 3.99 (<5); CREATININE FOR GFR 0.72 MG/DL (0.55-1.30); GLOMERULAR FILTRATION RATE > 60.0 (>51); GLUCOSE, FASTING 88 MG/DL (60-100); HDL CHOLESTEROL 60.4 MG/DL (>40); LDL CHOLESTEROL 161.2 MG/DL (<100); NON-HDL-C 180.6 MG/DL; POTASSIUM SERUM 3.9 MMOL/L (3.5-5.1); SODIUM LEVEL 145 MMOL/L (136-145); TOTAL PROTEIN 7.2 G/DL (5.7-8.2); TRIGLYCERIDES LEVEL 97 MG/DL (<150)
[2024-11-14 15:47] LABS: TOTAL 25(OH) VITAMIN D 85.8 NG/ML (20.0-100.0)
[2024-11-14 15:48] LABS: HEMATOCRIT 43.1 % (36.0-47.0); HEMOGLOBIN 14.5 g/dl (12.0-15.5); MEAN CORPUSCULAR HGB CONC 33.6 g/dl (32.0-36.5); MEAN CORPUSCULAR VOLUME 92.1 fl (80.0-96.0); PLATELET COUNT, AUTOMATED 261 10^3/uL (150-450); RED BLOOD COUNT 4.68 10^6/uL (4.00-5.40); WHITE BLOOD COUNT 11.1 10^3/uL (4.0-10.0)
== END ==
LOC: M PLALAB 09:23
PROVIDERS: ATTEND Student in an Organized Health Care Education/Training Program
DX: I10 Essential (primary) hypertension (principal); E55.9 Vitamin D deficiency, unspecified; Z13.1 Encounter for screening for diabetes mellitus; E78.00 Pure hypercholesterolemia, unspecified

== ENCOUNTER → 2024-11-14 | Outpatient (CLI) | payer MEDICARE, OTHER | LOC: M RAD 10:13 | PROVIDERS: ATTEND Family Medicine | DX: F17.219 Nicotine dependence, cigarettes, with unspecified nicotine-induced disorders (principal); Z53.9 Procedure and treatment not carried out, unspecified reason ==

== ENCOUNTER → 2024-12-04 | Outpatient (CLI) | payer MEDICARE, OTHER ==
[~2024-12-04] MED LIST changes: +ISOVUE-370 76% 100ML VIAL ONE
== END ==
LOC: M PLAIMG 07:38
PROVIDERS: ATTEND Student in an Organized Health Care Education/Training Program
DX: R91.8 Other nonspecific abnormal finding of lung field (principal)
CPT/HCPCS: 71260; Q9967

== ENCOUNTER 2024-12-05 10:43 | Outpatient (RCR) | payer MEDICARE, OTHER ==
[~2024-12-05 10:43] MED LIST changes: -ISOVUE-370 76% 100ML VIAL ONE
== END 2024-12-08 ==
LOC: M PT 10:43
PROVIDERS: ATTEND Student in an Organized Health Care Education/Training Program
DX: G89.29 Other chronic pain (principal); M54.9 Dorsalgia, unspecified

== ENCOUNTER 2024-12-18 10:00 | Outpatient (RCR) | payer MEDICARE, OTHER | END 2025-01-08 | LOC: M PT 10:00 | PROVIDERS: ATTEND Student in an Organized Health Care Education/Training Program | DX: G89.29 Other chronic pain (principal) ==

== ENCOUNTER → 2025-08-22 | Outpatient (CLI) | payer MEDICARE, OTHER ==
[~2025-08-22] MED LIST changes: +AMOX500T; +AMOX875T2 PO; +ATOR1TAB21 PO; +TIRZ15PE3; -TIZA10TA; +TIZA10TA PO; +ZOLO100T PO
[2025-08-22 09:25] LABS: PLATELET COUNT, AUTOMATED 238 10^3/uL (150-450)
== END ==
LOC: M LAB 08:28
PROVIDERS: ATTEND Nurse Practitioner Family
DX: R15.9 Full incontinence of feces (principal); R19.7 Diarrhea, unspecified; R10.30 Lower abdominal pain, unspecified

== ENCOUNTER 2025-09-03 10:13 | Day surgery (SDC) | payer MEDICARE, OTHER ==
[~2025-09-03] VITALS: Ht 167.6 cm; Wt 71.4 kg
[2025-09-03] MEDS ORDERED: LIDOCAINE 2% 100 MG/5 ML SDV (FOR ANES.) As Ordered ONE (11:55)
[2025-09-03 12:10] VITALS: TEMP 98
[2025-09-03 12:26] VITALS: BP 145/79; O2SAT 98
== END 2025-09-03 12:29 | disposition home or self-care (01) ==
LOC: M OPP 10:13
PROVIDERS: ATTEND Internal Medicine Gastroenterology
DX: K21.00 Gastro-esophageal reflux disease with esophagitis, without bleeding (principal); R19.7 Diarrhea, unspecified; R13.10 Dysphagia, unspecified; Z98.890 Other specified postprocedural states; Z88.2 Allergy status to sulfonamides; Z79.85 Long-term (current) use of injectable non-insulin antidiabetic drugs; Z79.899 Other long term (current) drug therapy; F17.210 Nicotine dependence, cigarettes, uncomplicated
CPT/HCPCS: 43239; 88305; J3010

== ENCOUNTER → 2025-09-19 | Outpatient (REF) | payer MEDICARE, OTHER | LOC: M LAB REF 09:45 | PROVIDERS: ATTEND Nurse Practitioner Family | DX: R19.7 Diarrhea, unspecified (principal) ==

== ENCOUNTER → 2025-09-27 | Outpatient (CLI) | payer MEDICARE, OTHER | LOC: M PLARAD 07:29 | PROVIDERS: ATTEND Nurse Practitioner Family | DX: R15.9 Full incontinence of feces (principal) ==

== ENCOUNTER → 2025-09-28 | Outpatient (CLI) | payer MEDICARE, OTHER | LOC: M PLARAD 12:31 | PROVIDERS: ATTEND Physician Assistant | DX: M22.2X2 Patellofemoral disorders, left knee (principal); M17.12 Unilateral primary osteoarthritis, left knee; M25.462 Effusion, left knee ==